=== PATIENT | female | born 1990 | race Caucasian/White ===

== ENCOUNTER → 2024-05-13 07:42 | Outpatient (REF) | payer OTHER, SELFPAY | LOC: HWWDC 07:42 | PROVIDERS: ATTENDING PHYSICIAN Obstetrics & Gynecology Gynecology; FAMILY PHYSICIAN Family Medicine | DX: Z12.31 Encounter for screening mammogram for malignant neoplasm of breast (principal); Z80.3 Family history of malignant neoplasm of breast | CPT/HCPCS: 77063; 77067 ==

== ENCOUNTER → 2024-05-21 09:20 | Outpatient (REF) | payer OTHER, SELFPAY | LOC: WDC 09:20 | PROVIDERS: ATTENDING PHYSICIAN Obstetrics & Gynecology Gynecology; FAMILY PHYSICIAN Family Medicine | DX: R92.8 Other abnormal and inconclusive findings on diagnostic imaging of breast (principal) | CPT/HCPCS: 77065 ==

== ENCOUNTER 2024-05-28 15:19 | Observation (INO) | payer OTHER, SELFPAY ==
[2024-05-28 11:46] VITALS: BP 135/86
[2024-05-28 12:04] LABS: % Basophils 0.4 % (0-2); % Eosinophils 0.7 % (0-6); % Immature Granulocytes 0.7 % (0-0.5); % Lymphocytes 15.7 % (20.5-51.1); % Monocytes 6.2 % (1.7-9.3); % Neutrophils 76.3 % (42.2-75.2); Absolute Basophils 0.1 10^3/uL (0-0.2); Absolute Eosinophils 0.1 10^3/uL (0-0.7); Absolute Immature Granulocytes 0.1 10^3/uL (0-0.05); Absolute Lymphocytes 1.8 10^3/uL (1.2-3.4); Absolute Monocytes 0.7 10^3/uL (0.1-0.6); Absolute Neutrophils 8.9 10^3/uL (1.4-6.5); Hematocrit 44.3 % (37.0-47.0); Hemoglobin 14.7 g/dL (12.0-16.0); Mean Corp Hgb Conc. 33.2 g/dL (33.0-37.0); Mean Corpuscular Hgb 26.7 pg (27.0-31.0); Mean Corpuscular Volume 80.5 fL (81.0-99.0); Mean Platelet Volume 9.4 fL (7.4-10.4); Nucleated Red Blood Cells % 0 %; Platelet Count 463 10^3/uL (130-400); Red Cell Dist. Width 14.4 % (11.5-14.5); White Blood Cell Count 11.7 10^3/uL (4.8-10.8)
[2024-05-28 12:30] LABS: ALT (SGPT) 30 U/L (0-35); AST (SGOT) 33 U/L (14-36); Albumin 4.7 g/dl (3.5-5.0); Alkaline Phosphatase 64 U/L (38-126); Blood Urea Nitrogen 13 mg/dl (7-17); Carbon Dioxide 28 mmol/L (22-30); Chloride 96 mmol/L (98-107); Glucose 100 mg/dl (70-99); Lipase 59 U/L (23-300); Potassium 4.4 mmol/L (3.5-5.1); Sodium 139 mmol/L (135-145); Total Bilirubin 0.6 mg/dl (0.2-1.3); Total Protein 8.3 g/dl (6.3-8.2); eGFR > 60.00
--- NOTE | 2024-05-28 13:08 | ED.GENMED ---
History of Present Illness
<Arnav Liao MD, Resident - Last Filed: 05/29/24 09:12>
General
Chief Complaint: Abdominal Symptoms
Source: patient
Time Seen by Provider: 05/28/24 12:52
Travel History
Have you traveled to any high risk areas for coronavirus over the past 14 days?: No
Have you had any contact with someone who has COVID-19?: No
Do you have any symptoms of coronavirus? Fever > 100 degrees, chills, cough, shortness of breath, sore throat, loss of taste or smell, muscle aches, or headache?: No
History of Present Illness
History of Present Illness:
Brianna Galeas, age 34, experienced an episode of coffee ground emesis earlier this morning. She began feeling nauseous yesterday morning and has had burning from her reflux since last evening. She has gastroesophageal reflux disease and
esophagitis, and has been on chronic proton pump inhibitor therapy. She switched from omeprazole to pantoprazole earlier this month when the former stopped being effective. She was also recently started on tirzepatide, and has been experiencing
intermittent nausea since then. She has been incrementally increasing her tirzepatide dosing - the last shot with an increased dose was two days ago on 05-26-24.
Past History
<Arnav Liao MD, Resident - Last Filed: 05/29/24 09:12>
Past History
ED Past Medical History: Other (gastroesophageal reflux disease; esophagitis; fatty liver disease; cholecystitis; iron deficiency anemia)
ED Past Surgical History: Cholecystectomy (2022)
Patient has exhibited threatening behavior?: No
PSI?: No
Social History
Tobacco: Non-smoker
Alcohol: Occasional
Drug: None
Review of Systems
<Arnav Liao MD, Resident - Last Filed: 05/29/24 09:12>
Review of Systems
All Other Systems: Not applicable
Constitutional: Reports no symptoms
EENT: Reports no symptoms
Respiratory: Reports no symptoms
Cardiac: Reports no symptoms
ABD/GI: Reports nausea and vomiting (with coffee ground emesis); Denies diarrhea, constipated, bloody stools, black stools, anorexia or pain
: Reports no symptoms
Musculoskeletal: Reports no symptoms
Skin: Reports no symptoms
Neurological: Reports no symptoms
Endocrine: Reports no symptoms
Hematologic/Lymphatic: Reports no symptoms
Psychiatric: Reports no symptoms
Phy Exam
<Arnav Liao MD, Resident - Last Filed: 05/29/24 09:12>
General Physical Exam
General Presentation: well appearing and no apparent distress
General Skin: warm and dry
General Habitus: normal
General Mental: alert
General Hydration: appears well hydrated
ENT Exam
ENT Exam: EOMI, pharynx normal, neck supple and normocephalic
Eye Exam
Eye Exam: PERRL, cornea clear and conjunctiva normal
Cardiovascular Exam
Cardiovascular Exam: regular rate/rhythm, no edema, no murmur and normal peripheral pulses
Pulmonary Exam
Pulmonary Exam: lungs clear, no respiratory distress, no rales, no crackles, no rhonchi, no stridor, no wheezing and no cough
Gastrointestinal Exam
Gastrointestinal Exam: normal bowel sounds, non tender, soft, no organomegaly, no pulsatile mass and non distended
Neurological Exam
Neurological Exam: alert, oriented x3, no motor deficits and speech normal
Musculoskeletal Exam
Musculoskeletal Exam: full ROM and no edema
Skin Exam
Skin Exam: normal color, warm/dry, no rash and no petechia
Psychiatric Exam
Psychiatric Exam: normal mood/affect
Course
<Arnav Liao MD, Resident - Last Filed: 05/29/24 09:12>
Orders/Labs/Results
Orders:
Orders
05/28/24 Breakfast
Clear Liquid
At Your Request: Full Participation
Does patient need a safe tray?: No
Clear Liquids: No red liquids
05/28/24 11:54
Complete Blood Count/With Diff Urgent
Comprehensive Metabolic Panel Urgent
Lipase Urgent
05/28/24 13:06
Pantoprazole [Protonix IV] 40 mg IV NOW STA
05/28/24 14:00
Pantoprazole 80 mg/100 ml Nss [Protonix] 80 mg in 100 ml IV Q10H
05/28/24 14:05
Consult Gastroenterology [GASTROINTESTINAL CONSULT] Urgent
Consulting Provider: Mónica Waller
Was physician already notified: Yes
05/28/24 14:07
Sucralfate [Carafate] 1 gram PO NOW STA
05/28/24 15:03
Admit/Transfer Patient As Directed
Co-Sign Provider:
Level of Care: Observation services
Assign to:: Medical/Surgical
Physician / Group: Bret
Diagnosis: Coffee Ground Emesis
PRN Pain Medication Management As Directed
May give lesser potent ordered pain med per pt: Yes
preference::
Protocol:: Medication orders for pain may be administered in a
manner that supports deferring to patient preference
when the pt is:
- Requesting an ordered lesser potent pain medication.
Least to most potent pain medications are defined
as: acetaminophen < NSAID < tramadol < opioids
(morphine, oxycodone, hydromorphone).
- Requesting a lesser dose of the same medication IF
ORDERED.
- Requesting a less intrusive route of administration
if both routes are prescribed by the provider (PO <
IV).
05/28/24 15:04
Code Status As Directed
Resuscitation Status: Full Code
05/28/24 16:58
Acetaminophen [Tylenol] 650 mg PO Q4HPRN PRN
Spironolactone [Aldactone] 150 mg PO DAILY@1600
Sucralfate Suspension [Carafate Suspension] 1 gm PO ACHS
05/28/24 16:58
I&O [Intake/ Output] As Directed
Frequency: q12h
Pneumatic Compression Sleeves As Directed
Type: Knee high
Vital Signs As Directed
Frequency: Per unit guidelines
DX Deep Vein Thrombosis Video Routine
05/28/24 19:59
H&H Routine
05/28/24 20:00
Pantoprazole [Protonix IV] 40 mg IV BID
05/29/24 Breakfast
NPO
Allow oral meds: Yes
Allow clear liquids: No
NPO with Ice Chips: Yes
05/29/24 07:38
Basic Metabolic Panel IN AM
Complete Blood Count/No Diff IN AM
Abnormal Lab Results
05/28/24
11:54
WBC 11.7 H 10^3/uL
(4.8-10.8)
RBC 5.50 H 10^6/uL
(4.20-5.40)
MCV 80.5 L fL
(81.0-99.0)
MCH 26.7 L pg
(27.0-31.0)
Plt Count 463 H 10^3/uL
(130-400)
Abs Immat Gran (auto) 0.1 H 10^3/uL
(0-0.05)
Absolute Neuts (auto) 8.9 H 10^3/uL
(1.4-6.5)
Absolute Monos (auto) 0.7 H 10^3/uL
(0.1-0.6)
Immature Gran % 0.7 H %
(0-0.5)
Neutrophils % 76.3 H %
(42.2-75.2)
Lymphocytes % 15.7 L %
(20.5-51.1)
Chloride 96 L mmol/L
(98-107)
Glucose 100 H mg/dl
(70-99)
Calcium 11.0 H mg/dl
(8.4-10.2)
Total Protein 8.3 H g/dl
(6.3-8.2)
05/28/24 11:54
05/28/24 11:54
Vital Signs
Initial and Last Documented VS:
Initial Vital Signs
Temp Pulse Resp BP Pulse Ox
98.7 F 120 16 135/86 94
05/28/24 11:46 05/28/24 11:46 05/28/24 11:46 05/28/24 11:46 05/28/24 11:46
Last Documented Vital Signs
Temp Pulse Resp BP Pulse Ox
97.8 F 97 18 130/85 97
05/29/24 08:12 05/29/24 08:12 05/29/24 08:12 05/29/24 08:12 05/29/24 08:12
<Pal Burden, DO - Last Filed: 05/28/24 14:02>
Orders/Labs/Results
Orders:
Orders
05/28/24 Breakfast
Clear Liquid
At Your Request: Full Participation
Does patient need a safe tray?: No
Clear Liquids: No red liquids
05/28/24 11:54
Complete Blood Count/With Diff Urgent
Comprehensive Metabolic Panel Urgent
Lipase Urgent
05/28/24 13:06
Pantoprazole [Protonix IV] 40 mg IV NOW STA
05/28/24 14:00
Pantoprazole 80 mg/100 ml Nss [Protonix] 80 mg in 100 ml IV Q10H
05/28/24 14:05
Consult Gastroenterology [GASTROINTESTINAL CONSULT] Urgent
Consulting Provider: Mónica Waller
Was physician already notified: Yes
05/28/24 14:07
Sucralfate [Carafate] 1 gram PO NOW STA
05/28/24 15:03
Admit/Transfer Patient As Directed
Co-Sign Provider:
Level of Care: Observation services
Assign to:: Medical/Surgical
Physician / Group: Bret
Diagnosis: Coffee Ground Emesis
PRN Pain Medication Management As Directed
May give lesser potent ordered pain med per pt: Yes
preference::
Protocol:: Medication orders for pain may be administered in a
manner that supports deferring to patient preference
when the pt is:
- Requesting an ordered lesser potent pain medication.
Least to most potent pain medications are defined
as: acetaminophen < NSAID < tramadol < opioids
(morphine, oxycodone, hydromorphone).
- Requesting a lesser dose of the same medication IF
ORDERED.
- Requesting a less intrusive route of administration
if both routes are prescribed by the provider (PO <
IV).
05/28/24 15:04
Code Status As Directed
Resuscitation Status: Full Code
05/28/24 16:58
Acetaminophen [Tylenol] 650 mg PO Q4HPRN PRN
Spironolactone [Aldactone] 150 mg PO DAILY@1600
Sucralfate Suspension [Carafate Suspension] 1 gm PO ACHS
05/28/24 16:58
I&O [Intake/ Output] As Directed
Frequency: q12h
Pneumatic Compression Sleeves As Directed
Type: Knee high
Vital Signs As Directed
Frequency: Per unit guidelines
DX Deep Vein Thrombosis Video Routine
05/28/24 19:59
H&H Routine
05/28/24 20:00
Pantoprazole [Protonix IV] 40 mg IV BID
05/29/24 Breakfast
NPO
Allow oral meds: Yes
Allow clear liquids: No
NPO with Ice Chips: Yes
05/29/24 07:38
Basic Metabolic Panel IN AM
Complete Blood Count/No Diff IN AM
Abnormal Lab Results
05/28/24
11:54
WBC 11.7 H 10^3/uL
(4.8-10.8)
RBC 5.50 H 10^6/uL
(4.20-5.40)
MCV 80.5 L fL
(81.0-99.0)
MCH 26.7 L pg
(27.0-31.0)
Plt Count 463 H 10^3/uL
(130-400)
Abs Immat Gran (auto) 0.1 H 10^3/uL
(0-0.05)
Absolute Neuts (auto) 8.9 H 10^3/uL
(1.4-6.5)
Absolute Monos (auto) 0.7 H 10^3/uL
(0.1-0.6)
Immature Gran % 0.7 H %
(0-0.5)
Neutrophils % 76.3 H %
(42.2-75.2)
Lymphocytes % 15.7 L %
(20.5-51.1)
Chloride 96 L mmol/L
(98-107)
Glucose 100 H mg/dl
(70-99)
Calcium 11.0 H mg/dl
(8.4-10.2)
Total Protein 8.3 H g/dl
(6.3-8.2)
05/28/24 11:54
05/28/24 11:54
Vital Signs
Initial and Last Documented VS:
Initial Vital Signs
Temp Pulse Resp BP Pulse Ox
98.7 F 120 16 135/86 94
05/28/24 11:46 05/28/24 11:46 05/28/24 11:46 05/28/24 11:46 05/28/24 11:46
Last Documented Vital Signs
Temp Pulse Resp BP Pulse Ox
97.8 F 97 18 130/85 97
05/29/24 08:12 05/29/24 08:12 05/29/24 08:12 05/29/24 08:12 05/29/24 08:12
<Arnav Liao MD, Resident - Last Filed: 05/29/24 09:12>
*Critical Care Note
Total Time (30-74mins, 75-104mins- exclusive of procedures): Not Applicable
ED Attending Note
<Arnav Liao MD, Resident - Last Filed: 05/29/24 09:12>
-
Portions of this chart may have been created with voice recognition software.� Occasional wrong word or��sound alike� substitutions may have occurred due to the inherent limitations of voice recognition software.
<Pal Burden, DO - Last Filed: 05/28/24 14:02>
ED Attending Note
Patient seen and examined by attending physician: Yes
I performed a history and physical exam of patient and discussed management with resident, I reviewed resident's note and agree with documented findings and plan of care.: Yes
ED Attending Note:
I have seen and evaluated the patient with a [id number] encounter. I have spoken to the resident and involved in the medical history, the physical exam, medical decision making.
Evaluation and management service: agree unless noted differently below.
Results interpretation: agree unless noted differently below.
Focused HPI: 34-year-old female presenting with epigastric discomfort and 1 episode of black emesis. Patient was nauseous at 6 AM and she had 1 episode of coffee-ground emesis. Patient has the picture to prove it. Her symptoms have progressively
worsened ever since she switched from omeprazole to pantoprazole a few weeks ago.
Physical exam: Appears comfortable. No significant abdominal tenderness
Medical Decision Making: Patient unable to tolerate food. Patient given IV Protonix and will place on Protonix drip. Will discuss case with GI and ultimately admit based on the coffee-ground emesis and difficulty with p.o. intake
Discharge Plan
Departure
Patient Disposition: Admit
Presentation/result/management discussed w/ accepting MD/DO: Hospitalist
Discharge Problem:
Coffee ground emesis
Interventions
Interventions:
*Risk Screen - Suicide Last Done: 05/28/24 11:46
*General Assessment Last Done: 05/28/24 11:46
*Neglect/Abuse Screening Last Done: 05/28/24 13:25
ED- Fall Risk Assessment Last Done: 05/28/24 13:25
*ED COVID-19 Vaccine History Last Done: 05/28/24 11:46
*Nursing Disposition Last Done: 05/28/24 16:51
OW-Nqlzti-Nkqiyfxtfg Assessment Last Done: 05/28/24 13:25
Discharge Date and Time
Discharge Date/Time: 05/28/24 16:52
[2024-05-28] MEDS: PROTONIX IV 40 MG IV ×2 (13:15→20:57)
[2024-05-28 13:29] VITALS: BP 104/86
[2024-05-28] MEDS: CARAFATE 1 GRAM PO (14:21)
[2024-05-28] MEDS: PROTONIX 100 IV (14:21)
--- NOTE | 2024-05-28 14:51 | HPS.HSE ---
Addendum entered and electronically signed by Shahid Queen MD 05/28/24 15:52:
I saw and examined the patient.
The DYE BLENDER or PA's note was reviewed and I agree with the note.
Comment: 34-year-old female with past medical history of GERD, obesity came to the hospital with coffee-ground emesis. Seen by GI in the ED and no plans for urgent/emergent EGD at this time. Will monitor patient on Protonix. Denies any NSAID use.
If hemoglobin stable by tomorrow and no further episodes then likely discharge with outpatient scope if necessary. N.p.o. past midnight in case needs EGD. Patient agreeable for OBS.
General: Comfortable, Conversant and Morbidly Obese
HEENT: Anicteric and Moist mucous membranes
Respiratory: Clear and Non Labored Respirations
Cardiac: S1/S2 and Regular Rhythm
GI: Soft and Non Tender
Musculoskeletal: No Clubbing, No Cyanosis and No Edema
Skin: Warm and Dry
Neuro: Awake, Alert, Oriented and Nonfocal/grossly intact
Psych: Calm
Original Note:
Family Physician
-
Family Physician: Khurram Jones Jr.
Chief Complaint
-
Coffee-Ground Emesis
History of Present Illness
Patient is a 34 y/o female past medical history of GERD, and Obesity who presents with coffee ground emesis. Patient reports last evening she was experiencing increased reflux symptoms with burning in her throat. This morning when she got up to use
the bathroom she had a sudden wave of nausea followed by an episode of coffee ground emesis. She reports only one episode this morning. She denies any abdominal pain, or dark/black stools. She denies any prior history of GI bleed. She denies
NSAIDs use or significant alcohol consumption.
Medical History
Past Medical History
Past Medical History: Reports Other
Additional Past Medical History:
Iron Deficiency Anemia
GERD
Past Surgical History: Reports Other
Additional Past Surgical History:
Cholecystectomy
Social History
Tobacco: Non-smoker
Alcohol: Other (Rare alcohol consumption)
Family History
Family History: Not pertinent
Allergies / Home Medications
Allergies reflects when Allergies were last updated in [facility].
Home Medications with original date entered in [facility]
Allergy/Medication List:
Allergies
Allergy/AdvReac Type Severity Reaction Status Date / Time
Sulfa (Sulfonamide Allergy Mild Hives Verified 05/28/24 11:50
Antibiotics)
Home Medications
cholecalciferol (vitamin D3) 25 mcg (1,000 unit) tablet (Vitamin D3) 25 mcg PO DAILY@1600 Supplement 10/30/22
spironolactone 50 mg tablet 150 mg PO DAILY@1600 Hormonal agent 10/30/22
tretinoin 0.025 % topical cream 1 applic topical DAILYPRN PRN skin issues 10/30/22
cetirizine 10 mg tablet (Zyrtec) 10 mg PO DAILY@1000 05/28/24
medroxyprogesterone 10 mg tablet 10 mg PO USEASDIRECTD 05/28/24
ondansetron HCl 4 mg tablet 4 mg PO DAILYPRN PRN nausea/vomiting 05/28/24
pantoprazole 40 mg tablet,delayed release 40 mg PO DAILY 05/28/24
vitamins-iron fumarate 65 mg iron-folic acid 1 mg tablet 1 tab PO DAILY@1000 05/28/24
tirzepatide (weight loss) 7.5 mg/0.5 mL subcutaneous pen injector (Zepbound) 7.[address] 05/28/24
Review of Systems
-
A 12 point ROS was completed and negative except as noted: Yes
Constitutional: Denies Fever or Chills
Respiratory: Denies Cough or Trouble Breathing
Cardiac: Denies Chest Pain or Palpitations
Abdomen/GI: Reports See HPI
Physical Exam
Vital Signs
Vital Signs
Temp Pulse Resp BP Pulse Ox
98.7 F 74 18 104/86 99
05/28/24 11:46 05/28/24 13:29 05/28/24 13:29 05/28/24 13:29 05/28/24 13:29
Physical Exam
General: Comfortable, Conversant and Morbidly Obese
HEENT: Anicteric and Moist mucous membranes
Respiratory: Clear and Non Labored Respirations
Cardiac: S1/S2 and Regular Rhythm
GI: Soft and Non Tender
Musculoskeletal: No Clubbing, No Cyanosis and No Edema
Skin: Warm and Dry
Neuro: Awake, Alert, Oriented and Nonfocal/grossly intact
Psych: Calm
Laboratory Results
-
05/28/24 11:54
05/28/24 11:54
Laboratory Results
Total Bilirubin 0.6 mg/dl (0.2-1.3) 05/28/24 11:54
AST 33 U/L (14-36) 05/28/24 11:54
ALT 30 U/L (0-35) 05/28/24 11:54
Alkaline Phosphatase 64 U/L (38-126) 05/28/24 11:54
Lipase 59 U/L (23-300) 05/28/24 11:54
Data Reviewed
-
Lab Data: Labs Reviewed by me
Impression/Plan
-
Coffee Ground Emesis
-Consult GI
-Continue Protonix drip to complete current bag than transition to BID
-Continue Carafate ACHS
-Allow clear liquids today, then NPO after midnight should patient need EGD tomorrow
-Repeat Hgb later tonight and in AM
Obesity due to Excess Calories (Class III)
-Affects all aspects of care
-Patient will need likely need hiatus from tirzepatide
DVT proph: SCDs
Code Status: Full Code
[2024-05-28 15:00] VITALS: BP 114/79
--- NOTE | 2024-05-28 15:11 | CON.GI ---
Addendum entered and electronically signed by Mónica Waller MD 05/28/24 17:24:
I saw and examined the patient.
The CORK WIRER or PA's note was reviewed and I agree with the note.
Comment:
Pt is a 34 y/o woman with a hx of obesity on zepbound last taken on monday. She has chronic gerd and her PPI wasn't working as well. She also was on doxycycline last month. She had nausea and one episode of coffee ground emesis that resolved.
her hgb is normal
abd: obese nontender
impression:
gerd
coffee ground emesis
plan:
monitor hgb
PPI bid
gerd precautions
may need to decrease/stop zepbound as it may be worsening gerd
EGD inpatient vs outpatient
Original Note:
Consultation
-
Date/Time Consultation Requested: 05/28/24 1405
Date/Time Consultation Performed: 05/28/24 6135
Requesting Provider: Dr. Liao
Performing Provider: Dr. Waller/PA Hanson
Reason for Consultation: coffee ground emesis x 1
Medical History
Chief Complaint / HPI
Chief Complaint: vomiting coffee ground emesis
History of Present Illness:
34-year-old female with past medical history of acne, morbid obesity on Zepbound with recent increase of dose to 7.5 mg injected on Monday evening, GERD, iron deficiency anemia, recent constipation, fatty liver who presents to the emergency room
with single episode of coffee ground emesis this morning after having a bowel movement. The patient states that this past Monday she injected increased dose of Zepbound 7.5 mg. The patient states that since she had increased dose she has been
having a significant issue with nausea and reflux. She states that she was going to actually asked her provider if she could stay on this dose and not increase as she is having an issue with it. She is having worsening reflux symptoms and also had
to change her PPI from omeprazole to pantoprazole recently. She has had to use Tums and Pepcid intermittently as well. She recently came off doxycycline for history of acne a few weeks back. She states that this morning after having a bowel
movement she went to get up and felt the urge to vomit. She bent over and vomited into the sink that was coffee grounds. She was able to show me a picture where there was evidence of coffee ground emesis. This was a single episode. None further.
No further nausea, vomiting there has been no abdominal pain associated with this. There is no bowel movements. Patient has a stable hemoglobin of 14.7, normal BUN of 13 her vital signs are stable. She was given pantoprazole bolus and drip in
the emergency room as well as 1 g Carafate orally. The patient denies any fevers, chills, melena, hematochezia, dysphagia or odynophagia. The patient had an endoscopy in November 2020 that showed a normal esophagus. Erythema in the antrum.
Erythematous duodenopathy. Biopsies were negative for celiac, negative for H. pylori as well as negative for intestinal metaplasia and dysplasia.Patient without any NSAID use.
Past Medical History
Past Medical History: GERD and Other (Morbid obesity, iron deficiency anemia, fatty liver, recent constipation)
Past Surgical History: Cholecystectomy
Social History
Tobacco: Non-Smoker
Alcohol: None
Drug: None
Personal: Single
Family History
Family History: Other (No family history gastrointestinal malignancy or IBD)
Allergies / Home Medications
Allergy/AdvReac Type Severity Reaction Status Date / Time
Sulfa (Sulfonamide Allergy Mild Hives Verified 05/28/24 11:50
Antibiotics)
�Medication �Instructions �Recorded
cholecalciferol (vitamin D3) 25 25 mcg PO DAILY@1600 Supplement 10/30/22
mcg (1,000 unit) tablet (Vitamin
D3)
spironolactone 50 mg tablet 150 mg PO DAILY@1600 Hormonal agent 10/30/22
tretinoin 0.025 % topical cream 1 applic topical DAILYPRN PRN skin 10/30/22
issues
cetirizine 10 mg tablet (Zyrtec) 10 mg PO DAILY@1000 05/28/24
medroxyprogesterone 10 mg tablet 10 mg PO USEASDIRECTD 05/28/24
ondansetron HCl 4 mg tablet 4 mg PO DAILYPRN PRN 05/28/24
nausea/vomiting
pantoprazole 40 mg tablet,delayed 40 mg PO DAILY 05/28/24
release
vitamins-iron fumarate 65 1 tab PO DAILY@1000 05/28/24
mg iron-folic acid 1 mg tablet
tirzepatide (weight loss) 7.[address] 05/28/24
mg/0.5 mL subcutaneous pen
injector (Zepbound)
Review of Systems
-
All other systems: A 12 pt ROS was Negative except as stated above in HPI
Vital Signs
Temp Pulse Resp BP Pulse Ox
98.7 F 97 23 104/86 93
05/28/24 11:46 05/28/24 14:59 05/28/24 14:45 05/28/24 13:29 05/28/24 14:45
Physical Exam
Exam
General: No Apparent Distress
HEENT: Anicteric
Respiratory: Clear (Anterior)
Cardiac: Regular Rhythm
GI: Soft, Non Tender, Non Distended and Normal Bowel Sounds
Skin: Warm and Dry
Neuro: AO x 3
Psych: Calm
Results
WBC 11.7 10^3/uL (4.8-10.8) H 05/28/24 11:54
Hgb 14.7 g/dL (12.0-16.0) 05/28/24 11:54
Hct 44.3 % (37.0-47.0) 05/28/24 11:54
MCV 80.5 fL (81.0-99.0) L 05/28/24 11:54
Plt Count 463 10^3/uL (130-400) H 05/28/24 11:54
Absolute Neuts (auto) 8.9 10^3/uL (1.4-6.5) H 05/28/24 11:54
Sodium 139 mmol/L (135-145) 05/28/24 11:54
Potassium 4.4 mmol/L (3.5-5.1) 05/28/24 11:54
Chloride 96 mmol/L (98-107) L 05/28/24 11:54
Carbon Dioxide 28 mmol/L (22-30) 05/28/24 11:54
BUN 13 mg/dl (7-17) 05/28/24 11:54
Creatinine 0.9 mg/dL (0.6-1.0) 05/28/24 11:54
Calcium 11.0 mg/dl (8.4-10.2) H 05/28/24 11:54
Total Bilirubin 0.6 mg/dl (0.2-1.3) 05/28/24 11:54
AST 33 U/L (14-36) 05/28/24 11:54
ALT 30 U/L (0-35) 05/28/24 11:54
Alkaline Phosphatase 64 U/L (38-126) 05/28/24 11:54
Lipase 59 U/L (23-300) 05/28/24 11:54
Diagnostic Image Results:
No imaging
Prior GI Procedures:
EGD: 11/06/2020:- Normal esophagus.
- Erythematous mucosa in the antrum. Biopsied.
- Erythematous duodenopathy. Biopsied.
- Normal examined duodenum, first portion of the
duodenum and second portion of the duodenum. Biopsied.
Colonoscopy: 11/06/2020 - The examined portion of the ileum was normal.
- Non-bleeding internal hemorrhoids.
- The examination was otherwise normal.
- No specimens collected.
Assessment / Plan
-
34-year-old female with past medical history of acne, morbid obesity on Zepbound with recent increase of dose to 7.5 mg injected on Monday evening, GERD, iron deficiency anemia, recent constipation, fatty liver who presents to the emergency room
with single episode of coffee ground emesis this morning after having a bowel movement. Patient with normal hemoglobin 14.7 with normal BUN of 13 and normal vital signs. No further episodes of vomiting. No abdominal pain. In the setting of
increase in Zepbound and recent doxycycline use.
Impression:
Coffee ground emesis x 1
GERD
GLP1 use for weight loss with increase dose (injected 05/26/24)
Morbid obesity
Plan:
-Patient has already been admitted for observation
-Increase Pantoprazole to 40 mg BID
-Carafate AC hs
-Clear liquids
-Recommend GLP1 hiatus
-No plans on EGD unless urgent need (active GI bleeding) given GLP1 on 05/26/24
-Discussed with patient that once we advance diet would recommend full liquid and protein shakes during this time of nausea, small amounts. Avoid eating and laying down for 3 hrs.
-
-
Thank you for consultation and allowing me to participate in the patient's care. Please call the content administrator GI physician during the after hours with any questions or concerns.
[2024-05-28 15:35] VITALS: BMI 51.0
--- NOTE | 2024-05-28 15:53 | W.PN.UPDATE ---
Update Note
Progress Note Update
For billing purposes only
[2024-05-28 16:58] VITALS: BP 116/80; BMI 50.5
[2024-05-28] MEDS: ALDACTONE 150 MG PO (17:24)
[2024-05-28] MEDS: CARAFATE SUSPENSION 1 GM PO ×2 (18:30→21:54)
[2024-05-28 20:04] LABS: Hematocrit 40.6 % (37.0-47.0); Hemoglobin 13.8 g/dL (12.0-16.0)
[2024-05-28] MEDS: NSS (PRESERVATIVE FREE) 10 ML IV (20:57)
[2024-05-28] MEDS: TESSALON PERLES 100 MG PO (20:57)
[2024-05-28 23:52] VITALS: BP 114/60
--- NOTE | 2024-05-29 07:41 | W.PN.GI.CBS2 ---
Today's Communication / Plan
-
Patient deferred EGD, opted conservative management and outpatient f/u with her Child Neurologist. See full recommendations as below. GI team will sign-off. Call back with questions/concerns.
Assessment / Plan
-
#Coffee Ground Emesis likely 2/2
#Reflux Esophagitis
#Chronic GERD
#Morbid Obseity (on zepbound)
Impression: Patient with one episode of coffee ground emesis at home presenting to the ED without further episodes since admission. Suspect her coffee ground emesis in setting of chronic GERD, recent Zepbound (dose increased 7.5 mg few days earlier)
along with prior doxycycline use last month likely resulting in erosive esophagitis in setting of worsening reflux from GLP1. Much less likely PUD. No further episodes since her admission and Hgb stable with nml BUN. Discussed potential EGD given
patient's admission versus conservative measures, opted for conservative management which is reasonable given her improving symptoms. Would benefit from close outpatient f/u with her Child Neurologist for further reflux management and potential EGD.
Recommendations:
- Okay for CLD, may ADAT to low-fat diet
- Continue Pantoprazole 40 mg BiD along with Pepcid 40 mg qhs for maximal acid suppression
- May trial Carafate as well as needed for symptom relief
- Discussed GERD lifestyle modifications again at bedside
- Defer EGD at this time per patient preference and opted for conservative management, reasonable for outpatient follow-up
- May need to consider decreasing and/or stopping Zepbound as this is likely worsening her GERD. This can be decided as outpatient
- Needs strict avoidance of all NSAIDs
- Outpatient f/u with her primary Child Neurologist, Dr. Waller
- Rest of care per primary team
Discussed with primary internal medicine team this AM.
Inpatient GI team will sign-off. Please call back with any questions or concerns.
Subjective
Subjective
Date of Service: May 29, 2024
- No further episodes of coffee ground emesis overnight, Hgb stable
Feeling well, resting comfortably. Denies any further episodes of nausea or vomiting since her admission. Hungry and wants to go home. Discussed possible EGD with patient this morning. Opted for conservative management as she's feeling better. No
other melena or bloody stools, last BM 2 days ago. Discussed outpatient f/u with Dr. Waller as outpatient.
Objective
Data Reviewed
Laboratory Data:
Laboratory Results
Total Bilirubin 0.6 mg/dl (0.2-1.3) 05/28/24 11:54
AST 33 U/L (14-36) 05/28/24 11:54
ALT 30 U/L (0-35) 05/28/24 11:54
Alkaline Phosphatase 64 U/L (38-126) 05/28/24 11:54
Lipase 59 U/L (23-300) 05/28/24 11:54
Vital Signs and I&O:
Vital Signs
Temp Pulse Resp BP Pulse Ox
98.2 F 99 18 114/60 97
05/28/24 23:52 05/28/24 23:52 05/28/24 23:52 05/28/24 23:52 05/28/24 23:52
I&O
05/28/24 05/29/24 05/30/24
06:59 06:59 06:59
Intake Total 480 / 480
Balance 480 / 480
Physical Exam
Physical Exam
HEENT: Anicteric and Moist mucous membranes
Cardiology: Normal Sinus Rhythm
Pulmonary: Other (Normal WOB on room air)
GI: Soft, Non Tender and Other (Protuberant abdomen)
Extremities: No Edema
Neuro: Non Focal
[2024-05-29 08:10] LABS: Hematocrit 41.4 % (37.0-47.0); Hemoglobin 14.1 g/dL (12.0-16.0); Mean Corp Hgb Conc. 34.1 g/dL (33.0-37.0); Mean Corpuscular Hgb 27.9 pg (27.0-31.0); Mean Platelet Volume 9.6 fL (7.4-10.4); Platelet Count 401 10^3/uL (130-400); Red Blood Cell Count 5.05 10^6/uL (4.20-5.40); Red Cell Dist. Width 14.4 % (11.5-14.5); White Blood Cell Count 8.4 10^3/uL (4.8-10.8)
[2024-05-29 08:12] VITALS: BP 130/85
[2024-05-29] MEDS: NSS (PRESERVATIVE FREE) 10 ML IV (08:29)
[2024-05-29] MEDS: PROTONIX IV 40 MG IV (08:29)
[2024-05-29] MEDS: CARAFATE SUSPENSION 1 GM PO ×2 (08:29→12:09)
[2024-05-29 09:06] LABS: Calcium 9.4 mg/dl (8.4-10.2)
[2024-05-29 09:08] LABS: Blood Urea Nitrogen 10 mg/dl (7-17); Carbon Dioxide 26 mmol/L (22-30); Chloride 98 mmol/L (98-107); Estimated Creatinine Clearance > 125 ml/min; Glucose 88 mg/dl (70-99); Potassium 4.4 mmol/L (3.5-5.1); Sodium 139 mmol/L (135-145); eGFR > 60.00
--- NOTE | 2024-05-29 10:58 | W.PN.HOSP.TC ---
Today's Communication/Plan
-
Monitor vital signs
see plan
If tolerates low-fat diet with lunch then discharge
Assessment / Plan
Assessment / Plan
General: Comfortable, Conversant and Morbidly Obese
HEENT: Anicteric and Moist mucous membranes
Respiratory: Clear and Non Labored Respirations
Cardiac: S1/S2 and Regular Rhythm
GI: Soft and Non Tender
Musculoskeletal: No Clubbing, No Cyanosis and No Edema
Skin: Warm and Dry
Neuro: Awake, Alert, Oriented and Nonfocal/grossly intact
Psych: Calm
Coffee Ground Emesis
No further episodes, hemoglobin stable
GI following,PPI BID along with famotidine
Patient will follow-up with GI outpatient for possible endoscopy
-Continue Carafate ACHS
No plan for inpatient EGD. Tolerated fulls, if tolerate low-fat diet with lunch then discharge
Obesity due to Excess Calories (Class III)
-Affects all aspects of care
-Patient will need likely need hiatus from tirzepatide
DVT proph: SCDs
Code Status: Full Code
Anticipated Discharge: Today
Subjective/Interval History
-
Date of Service: May 29, 2024
denies pain
Objective Data
-
Labs:
Laboratory Results
05/29/24
07:38
WBC 8.4
Hgb 14.1
Hct 41.4
Plt Count 401 H
Sodium 139
Potassium 4.4
Chloride 98
Carbon Dioxide 26
BUN 10
Creatinine 0.8
Glucose 88
Calcium 9.4 D
Vital Signs:
Vital Signs
Temp Pulse Resp BP Pulse Ox
97.8 F 97 18 130/85 97
05/29/24 08:12 05/29/24 08:12 05/29/24 08:12 05/29/24 08:12 05/29/24 08:12
I&O
05/28/24 05/29/24 05/30/24
06:59 06:59 06:59
Intake Total 480 / 480
Balance 480 / 480
--- NOTE | 2024-05-29 12:51 | CM ---
CM met with Brianna who lives with her mother in a 2 story home with 1 entry step. There are 14 steps to bed and bathroom. She is independent in ambulation, ADLs, and drives. No history of home health services or SNF.
Observation letter signed and placed on chart.
Ph[facility]acy: [facility]
PCP: Mita Olson
PLAN: Discharge to home with no needs.
--- NOTE | 2024-05-29 14:45 | W.DCSUMMARY ---
Discharge Summary
Discharge Data
Date of Admission: 05/28/24
Date of Discharge: 05/29/24
-
Pending Results: No
Hospital Course
34-year-old female with past medical history of obesity, GERD came to the hospital with coffee-ground emesis which was likely thought was secondary to reflux esophagitis. Patient was seen by gastroenterology and since patient did not had any
further episodes and hemoglobin was stable, decision was made to have patient see gastroenterology outpatient for possible endoscopy. Patient symptoms continue to improve on PPI twice daily and Carafate. On discharge patient was instructed to
continue these medications. Patient was able to tolerate regular diet prior to the discharge. On discharge patient instructed to follow-up with all her physicians outpatient.
Discharge Plan
-
Patient Disposition: Home (Routine Discharge)
Discharge Diagnosis/Procedures: Coffee-ground emesis likely secondary to reflux esophagitis
Diet: Low Fat
Activity: As tolerated
Driving Restrictions: As prior to admission
Referrals:
Mónica Waller MD [Active] -
Khurram Jones Jr., DO [Family Provider] - in less than 1 week
Prescriptions:
New
sucralfate [Carafate] 1 gram tablet
1 g PO ACHS Qty: 60 0RF
famotidine [Pepcid] 40 mg tablet
40 mg PO HS Qty: 30 0RF
Continued
tretinoin 0.025 % cream
1 applic TOPICAL DAILYPRN PRN (Reason: skin issues)
Patient Comments:
apply to face
Rx Instructions:
apply to face
spironolactone 50 mg tablet
150 mg PO DAILY@1600
cholecalciferol (vitamin D3) [Vitamin D3] 25 mcg (1,000 unit) Tablet
25 mcg PO DAILY@1600
medroxyprogesterone 10 mg tablet
10 mg PO USEASDIRECTD
Patient Comments:
05/28/2024: 1 TABLET WITH FOOD. TAKE THE FIRST 10 DAYS OF EVERY MONTH ORALLY ONCE A DAY
ondansetron HCl 4 mg tablet
4 mg PO DAILYPRN PRN (Reason: nausea/vomiting)
Zepbound 7.5 mg/0.5 mL pen injector
7.[address]
cetirizine [Zyrtec] 10 mg Tablet
10 mg PO DAILY@1000
vit-iron fum-folic ac 65 mg iron- 1 mg Tablet
1 tab PO DAILY@1000
Changed
pantoprazole 40 mg tablet,delayed release (DR/EC)
40 mg PO BID Qty: 60 0RF
Discharge Orders:
Discharge Patient (As Directed); Ordered 05/29/24
Ordered By: Shahid Queen
Discharge Date and Time
Discharge Date/Time: 05/29/24 16:31
Print Language: PERSIAN
[2024-05-29] MEDS: ALDACTONE 150 MG PO (15:53)
[2024-05-29 16:24] VITALS: BP 116/84
--- NOTE | 2024-05-29 16:25 | PTCARENOTE ---
Received patient this am AAOx3. Pt seen by GI an Medicine this am. Pt tolerated a full liquid diet for breakfast and Low fat diet for lunch. made aware. Pt offered no complaints. Made patient comfortable. Cont to assess patient status. Pt
for discharge to home today.
== END 2024-05-29 16:31 | disposition home or self-care (01) ==
LOC: 4 EAST ACU 15:19
PROVIDERS: Physician Assistant Medical; Student in an Organized Health Care Education/Training Program; ADMITTING PHYSICIAN Internal Medicine; CONSULT PHYSICIAN Internal Medicine; EMERGENCY PHYSICIAN Student in an Organized Health Care Education/Training Program; FAMILY PHYSICIAN Family Medicine
DX: R11.2 Nausea with vomiting, unspecified (principal); R10.9 Unspecified abdominal pain; K21.01 Gastro-esophageal reflux disease with esophagitis, with bleeding; K76.0 Fatty (change of) liver, not elsewhere classified; D50.9 Iron deficiency anemia, unspecified; E66.01 Morbid (severe) obesity due to excess calories; Z68.43 Body mass index [BMI] 50.0-59.9, adult; Z88.2 Allergy status to sulfonamides; Z79.3 Long term (current) use of hormonal contraceptives; Z90.49 Acquired absence of other specified parts of digestive tract
CPT/HCPCS: 80048; 80053; 83690; 85014; 85018; 85025; 85027; 96374; 96376; 99285; G0378

== ENCOUNTER → 2024-08-09 07:42 | Outpatient (REF) | payer OTHER, SELFPAY ==
[2024-08-09 09:07] LABS: HCG, Serum Qualitative Screen Negative
== END ==
LOC: RAD 07:42
PROVIDERS: ATTENDING PHYSICIAN Internal Medicine; FAMILY PHYSICIAN Family Medicine; REFERRING PHYSICIAN Radiology Diagnostic Radiology
DX: K21.9 Gastro-esophageal reflux disease without esophagitis (principal); Z01.818 Encounter for other preprocedural examination
CPT/HCPCS: 36415; 78264; 84703; A9541

== ENCOUNTER 2024-08-29 06:05 | Day surgery (SDC) | payer OTHER, SELFPAY ==
[2024-08-29 09:17] VITALS: BMI 52.3
[2024-08-29 09:18] VITALS: BMI 52.3
[2024-08-29 09:19] VITALS: BP 110/67
[2024-08-29 11:00] VITALS: BP 106/54
[2024-08-29 11:15] VITALS: BP 94/61
[2024-08-29 11:29] VITALS: BP 110/71
== END 2024-08-29 11:37 | disposition home or self-care (01) ==
LOC: GI 06:05
PROVIDERS: ATTENDING PHYSICIAN Internal Medicine
DX: K22.2 Esophageal obstruction (principal); K44.9 Diaphragmatic hernia without obstruction or gangrene; K21.9 Gastro-esophageal reflux disease without esophagitis
CPT/HCPCS: 43239; 88305; 88342

== ENCOUNTER → 2024-11-22 15:18 | Outpatient (REF) | payer OTHER, SELFPAY | LOC: WDC 15:18 | PROVIDERS: ATTENDING PHYSICIAN Obstetrics & Gynecology Gynecology; FAMILY PHYSICIAN Family Medicine | DX: R92.8 Other abnormal and inconclusive findings on diagnostic imaging of breast (principal) | CPT/HCPCS: 77065 ==

== ENCOUNTER → 2025-06-21 07:13 | Outpatient (REF) | payer OTHER, SELFPAY | LOC: WDC 07:13 | PROVIDERS: ATTENDING PHYSICIAN Obstetrics & Gynecology Gynecology; FAMILY PHYSICIAN Family Medicine | DX: Z12.31 Encounter for screening mammogram for malignant neoplasm of breast (principal); Z80.3 Family history of malignant neoplasm of breast | CPT/HCPCS: 77063; 77067 ==